=== PATIENT | female | born 1975 | race Caucasian/White ===

== ENCOUNTER → 2018-04-18 15:25 | Outpatient (CLI) | payer BC, SELFPAY ==
[2018-04-18 12:45] VITALS: BMI 23.9
[2018-04-24 10:49] LABS: HPV APTIMA, High Risk Negative (Negative)
== END ==
PROVIDERS: Family Provider Internal Medicine; PCP Internal Medicine; Referring Provider Obstetrics & Gynecology; Visit Provider Obstetrics & Gynecology
DX: Z12.4 Encounter for screening for malignant neoplasm of cervix (principal)
CPT/HCPCS: 87624; 88175; G0145

== ENCOUNTER → 2018-04-27 08:21 | Outpatient (CLI) | payer BC, SELFPAY ==
[2018-04-18 12:45] VITALS: BMI 23.9
[2018-04-27 10:14] LABS: Cholesterol 166 mg/dL (200); Estradiol < 11.0 pg/mL; Follicle Stimulating Hormone 92.1 mIU/mL; Glucose 96 mg/dL (74-106); High Density Lipoprotein 63 mg/dL; Prolactin 6.2 ng/mL; Triglycerides 63 mg/dL; Very Low Density Lipoprotein 13 mg/dL (5-40)
[2018-04-27 10:37] LABS: Vitamin D,25 Hydroxy 28.4 ng/mL (29.95-100.01)
[2018-04-29 07:06] LABS: DHEA Sulfate 126.3 ug/dL (57.3-279.2)
[2018-04-29 08:48] LABS: Testosterone Free 1.2 pg/mL (0.0-4.2)
== END ==
PROVIDERS: Family Provider Internal Medicine; PCP Internal Medicine; Referring Provider Obstetrics & Gynecology; Visit Provider Obstetrics & Gynecology
DX: N91.5 Oligomenorrhea, unspecified (principal); Z13.1 Encounter for screening for diabetes mellitus; Z13.21 Encounter for screening for nutritional disorder; Z13.220 Encounter for screening for lipoid disorders
CPT/HCPCS: 80061; 82306; 82627; 82670; 82947; 83001; 84146; 84402; 84443; 82626

== ENCOUNTER 2019-10-29 11:28 | Emergency (ER) | payer BC, SELFPAY ==
[2019-07-28 09:50] VITALS: BMI 23.9
[2019-10-29 11:30] VITALS: BP 150/94; PULSE 89; RESP 16; TEMP 36.1; O2SAT 99; BMI 23.0
--- NOTE | 2019-10-29 11:37 | CT_ITS ---
STUDY: CT BRAIN WITHOUT CONTRAST REASON FOR EXAM: Female, 43 years old. TRAUMA, FALL WHILE RUNNING, LANDED ON FACE RADIATION DOSAGE (If Supplied By Facility): CTDIvol = ( 44.99 ) mGy, DLP = ( 762.36 ) mGycm TECHNIQUE: Transaxial CT imaging of the brain was performed without administration of intravenous contrast material. Individualized dose optimization techniques were used for this CT. COMPARISON: No relevant priors. FINDINGS: Normal soft tissue structures. Normal calvarium. Normal size ventricles and extra-axial spaces for the patient''s age. Normal white matter tracts of the cerebral hemispheres. Normal basal ganglia and thalami. Normal brainstem. Normal cerebellum. There is no intracranial hemorrhage. There are no findings of an acute ischemic infarction. Normal visualized paranasal sinuses. CT/Brain/Head without Contrast IMPRESSION: Normal unenhanced CT scan of the brain. Electronically Signed: Ken Love, at 12:15 EDT , Service support ,
--- NOTE | 2019-10-29 11:39 | ED.VIS.GEN ---
History of Present Illness Chief Complaint: Fall Informant: Patient Onset: Today Context: Sudden Onset Timing: Continuous Current Severity: Moderate Maximum Severity: Moderate Narrative: The patient is an otherwise healthy 43-year-old female who presents to the emergency department after a fall. Patient was in her normal state of health. She was running with her dogs. She states that she tripped and was going to lose her balance. She states that she tried to fall on her right side because the dog was on her left. She struck her right face against the sidewalk. She did not lose consciousness. However, since then, she has had persistent headache and mild nausea. She states she also had floaters in her vision that lasted a few seconds. There was no seizure activity. She is not on anticoagulants. She is otherwise been in her normal state of health. Prior similar symptoms: No Recent Illness/Hospitalization: No Past Medical History - Allergies and Home Meds Allergies/Adverse Reactions: Allergies erythromycin base Allergy (Verified 04/18/18 12:46) Vomiting Primary Care Physician: Cande Woodruff MD [Primary Care Provider] - Prior records reviewed: Yes Past Medical History: - - Asthma Surgical History: noncontributory Smoking Status: Never smoker Review of Systems General: Denies: Chills, Fever, Sweats Eyes: Denies: Visual changes - bilaterally, Diplopia ENT: Denies: Rhinorrhea, Sore throat Cardiovascular: Denies: Chest pain, Palpitations Respiratory: Denies: Dyspnea, Cough, Dyspnea on exertion Gastrointestinal: Denies: Abdominal pain, Nausea, Vomiting, Diarrhea, Melena, Hematochezia Genitourinary: Denies: Dysuria, Hematuria, Frequency Musculoskeletal: Denies: Back pain, Extremity Pain Skin: Denies: Rash, Wounds Neurological: Denies: Headache, Weakness, Numbness Physical Exam Vital Signs/Narrative: Vital Signs Temp Pulse Resp BP Pulse Ox 10/29/19 11:30 97 F L 89 16 150/94 H 99 Inital Vital Signs reviewed: Yes General: Well nourished, Well developed, No Acute Distress Head: Normocephalic, Trauma - Mild ecchymosis over the right cheek. Superficial laceration intraorally over the right upper teeth. No step-off. No deformity. No malocclusion. Midface stable. Eyes: Perrl, EOMI ENT: Moist mucous membranes, No rhinorrhea Neck: Supple, Nontender Cardiovascular: Regular rate, Regular rhythm, No murmurs Respiratory: No distress, CTA bilaterally, Chest nontender Abdomen: Soft, Nontender, Nondistended, Normal bowel sounds Back: Nontender, Normal Inspection Extremities: Nontender, No edema Skin: Normal color, No rash Neurological: Alert, Oriented x3, Cranial nerves II-XII grossly intact, Normal Strength, Normal Sensation Psychological: Normal affect, Normal Mood Diagnostic/Tx/Re-eval Clinical Impression(s) from Imaging Studies Brain CT 10/29/19 11:37 IMPRESSION: Normal unenhanced CT scan of the brain. Electronically Signed: Ken Ivan, at 12:15 EDT , Service support , Facial/Sinus 10/29/19 11:54 IMPRESSION: Normal unenhanced CT of the facial bones. Electronically Signed: Ken Love, at 12:15 EDT , Service support , - Medical Decision Making The patient presents with head injury after fall. She struck her face. She did have some floaters in her eyes. Her neuro exam is otherwise unremarkable. I did obtain CT imaging of the head and face. These are both unremarkable. On reevaluation, the patient is resting comfortably. She was counseled on concerning symptoms and reasons to return. She will be discharged home. Impression 1. Right facial contusion 2. Concussion without loss of consciousness ED Disposition - Plan for ED Patient: Instructions: ED CONTUSION Face No Wake Up] Referrals: Cande Woodruff MD [Primary Care Provider] -
--- NOTE | 2019-10-29 11:54 | CT_ITS ---
STUDY: CT FACIAL BONES WITHOUT CONTRAST REASON FOR EXAM: Female, 43 years old. TRAUMA, FALL WHILE RUNNING, LANDED ON FACE RADIATION DOSAGE (If Supplied By Facility): CTDIvol = ( 29.38 ) mGy, DLP = ( 525.42 ) mGycm TECHNIQUE: The patient was scanned in a multi detector CT scanner. Sagittal and coronal images were reconstructed. Individualized dose optimization techniques were used for this CT. COMPARISON: None. FINDINGS: Normal soft tissue structures. Normal orbital russell and orbital contents. Normal nasal bones and anterior nasal spine. Normal facial bones. There is no demonstrated fracture. Nasal septal deviation to the left side of the midline with a bony spur. Normal visualized paranasal sinuses. CT/Sinus/Facial Bone IMPRESSION: Normal unenhanced CT of the facial bones. Electronically Signed: Ken Love, at 12:15 EDT , Service support ,
== END 2019-10-29 12:42 | disposition home or self-care (01) ==
LOC: ED 12:39
PROVIDERS: Emergency Provider Emergency Medicine; PCP Internal Medicine
DX: S06.0X0A Concussion without loss of consciousness, initial encounter (principal); S01.512A Laceration without foreign body of oral cavity, initial encounter; W01.10XA Fall on same level from slipping, tripping and stumbling with subsequent striking against unspecified object, initial encounter; Y93.02 Activity, running; Y92.9 Unspecified place or not applicable; Y99.9 Unspecified external cause status; J45.909 Unspecified asthma, uncomplicated; Z79.899 Other long term (current) drug therapy
CPT/HCPCS: 70450; 70486; 99283

== ENCOUNTER 2021-05-05 12:11 | Outpatient (CLI) | payer BC, SELFPAY ==
[2021-05-12 14:48] LABS: HPV APTIMA, High Risk Negative (Negative)
== END 2021-05-05 23:59 | disposition home or self-care (01) ==
LOC: LABSPEC 12:12
PROVIDERS: PCP Internal Medicine; Visit Provider Obstetrics & Gynecology
DX: Z12.4 Encounter for screening for malignant neoplasm of cervix (principal)
CPT/HCPCS: 87624; 88175; G0145